=== PATIENT | female | born 1990 | race Caucasian/White ===

== ENCOUNTER 2021-12-23 21:38 | Emergency (ER) | payer OTHER, SELFPAY ==
[2021-12-23 21:46] VITALS: BP 158/98; PULSE 101; RESP 18; TEMP 36.2; O2SAT 100
[2021-12-24 02:16] VITALS: BP 123/64; PULSE 99; RESP 16; O2SAT 97
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
[2021-12-24] MEDS: IBUPROFEN 400 MG TABLET 800 MG PO (03:54)
[2021-12-24] MEDS: ONDANSETRON HCL ODT 4 MG TABLET PO (03:55)
[2021-12-24 04:28] VITALS: BP 125/84; PULSE 80; RESP 16; O2SAT 97
== END 2021-12-24 04:30 | disposition home or self-care (01) ==
PROVIDERS: Emergency Provider General Practice
DX: R11.0 Nausea (principal); V89.2XXA Person injured in unspecified motor-vehicle accident, traffic, initial encounter
CPT/HCPCS: 99283; A9270